=== PATIENT | female | born 1950 | race Caucasian/White ===

== ENCOUNTER → 2017-01-10 | Outpatient (CLI) | payer BC ==
[~2017-01-10] MED LIST: ASPI81TA28 PO; CALC200T PO; CHOL1000 PO; COEN200C PO; Curamin PO; FLUO20CA35 PO; GLC/500 PO; LEVO-14 PO; LEVO112C2 PO; LEVO75CA2 PO; LISI-461 PO; MAGNTAB4 PO; MCRK/20 PO; MELA3TAB PO; MULT-513 PO; OMEG10007 PO; PRLSR20 PO; SIMV5TAB2 PO; [UNRECOGNIZED DRUG - OTHER] OPB
--- NOTE | 2017-01-10 15:52 | MAMMOGRAPHY REPORT ---
BILATERAL DIGITAL SCREENING MAMMOGRAM WITH CAD: 01/10/2017 CLINICAL HISTORY: Routine screening. Patient has no complaints. TECHNIQUE: Bilateral CC and MLO views were obtained. Current study was also evaluated with a Computer Aided Detection (CAD) system. COMPARISON: Comparison is made to exams dated: 12/31/2015 mammogram, 12/20/2014 mammogram, 12/12/2013 m ammogram, 12/11/2012 mammogram, 12/09/2011 mammogram, and 12/02/2010 mammogram - [facility] ter. BREAST COMPOSITION: There are scattered areas of fibroglandular density in both breasts. FINDINGS: Linear scar markers overlie each breast and there is expected architectural distortion in t he anterior aspect of each breast at the site of prior surgery. There are scattered benign rim calci fications and benign-appearing round/punctate microcalcifications in the breasts. No new suspicious mass, architectural distortion or cluster of microcalcifications is seen. IMPRESSION: ACR BI-RADS CATEGORY 1: NEGATIVE There is no mammographic evidence of malignancy. A 1 year screening mammogram is recommended. The pa tient will receive written notification of the results. Approximately 10% of breast cancers are not detected with mammography. A negative mammographic report should not delay biopsy if a clinically suggestive mass is present. Connie Batista M.D. ay/:01/10/2017 14:07:17 General Machinist: Radha Ambrose, [facility] letter sent: Normal 1/2 BI-RADS Code: ACR BI-RADS Category 1: Negative
== END | disposition home or self-care (01) ==
LOC: C.MAMM 11:16
PROVIDERS: ATTEND Obstetrics & Gynecology
DX: Z12.31 Encounter for screening mammogram for malignant neoplasm of breast (principal)